=== PATIENT | male | born 1955 | race Two or more races ===

== ENCOUNTER 2017-08-30 01:58 | Inpatient (IN) | payer MEDICAID ==
[~2017-08-30] VITALS: Ht 177.8 cm; Wt 84.4 kg
[2017-08-30 02:59] LABS: BASOPHILS % (AUTO) 0.4 % (0.0-2.0); EOSINOPHILS % (AUTO) 0.4 % (0.0-7.0); HEMATOCRIT 41.5 % (36.7-47.1); HEMOGLOBIN 14.6 g/dL (12.5-16.3); LYMPHOCYTES # (AUTO) 1.9 K/uL (20.0-40.0); LYMPHOCYTES % (AUTO) 19.9 % (20.5-51.5); MEAN CORPUSCULAR HEMOGLOBIN 30.5 uug (23.8-33.4); MEAN CORPUSCULAR HGB CONC 35 g/dL (32.5-36.3); MEAN CORPUSCULAR VOLUME 86.9 fL (73.0-96.2); MONOCYTES # (AUTO) 0.9 K/uL (2.0-10.0); MONOCYTES % (AUTO) 9.8 % (0.0-11.0); NEUTROPHILS # (AUTO) 6.7 K/uL (1.8-8.9); NEUTROPHILS % (AUTO) 69.5 % (38.5-71.5); PLATELET COUNT (AUTO) 171 K/uL (152-348); RED BLOOD CELL COUNT(AUTO) 4.78 MIL/uL (4.06-5.63); WHITE BLOOD COUNT (AUTO) 9.6 K/uL (3.6-10.2)
[2017-08-30 03:15] LABS: BILIRUBIN,DIRECT 0.1 mg/dL (0.0-0.2); BILIRUBIN,TOTAL 0.6 mg/dL (0.2-1.0); CREATININE 1.4 mg/dL (0.6-1.3); POTASSIUM 3.7 mmol/L (3.5-5.1); TOTAL PROTEIN, SERUM 7.4 g/dL (6.4-8.2)
[2017-08-30] MEDS ORDERED: IV NORMAL SALINE 1000 ML BAG IV ONE (03:45)
--- NOTE | 2017-08-30 04:11 | NUR ---
Family at bedside, patient resting. no acute distress noted.
[2017-08-30] MEDS ORDERED: METF500T4 PO (04:13)
[2017-08-30] MEDS ORDERED: GLIP5TAB13 PO (04:13)
[2017-08-30] MEDS ORDERED: AMLO5TAB2 PO (04:13)
[2017-08-30] MEDS ORDERED: LISI-607 PO (04:13)
--- NOTE | 2017-08-30 06:04 | NUR ---
Call placed to [facility] for panel call. Call back pending.
--- NOTE | 2017-08-30 06:05 | NUR ---
Patient in bed, no acute distress noted. All patient needs attended and met. Call light is within reach.
--- NOTE | 2017-08-30 06:42 | NUR ---
ER spoke with Dr Mcleod. Patient cleared for inpatient Telemetry admission.
--- NOTE | 2017-08-30 06:52 | NUR ---
Attempted to give report on patient. Per inpatient unit, there is no nurse assigned to this patients room at this time. Unable to give report at this time.
[2017-08-30] MEDS ORDERED: Z GUARD REMEDY PASTE 57 GM TUBE TOP PRN (07:00)
[2017-08-30] MEDS ORDERED: DEXTROSE 50% 50 ML DISP.SYRIN IV PRN (07:00)
[2017-08-30] MEDS ORDERED: MAGNESIUM HYDROXIDE 30 ML LIQUID UDC PO PRN (07:00)
[2017-08-30] MEDS ORDERED: ACETAMINOPHEN 325 MG TABLET PO PRN (07:00)
[2017-08-30] MEDS: BLOOD SUGAR DIAGNOSTIC 1 EACH STRIP VI SCH ×4 (07:44→21:21)
[2017-08-30] MEDS ORDERED: INSULIN REGULAR, HUMAN 300 UNIT/3 ML VIAL ONE (08:03)
--- NOTE | 2017-08-30 08:04 | NUR ---
report was given to fingernail technician. pt was transfered to room #224.
[2017-08-30 08:30] VITALS: BP 138/79
[2017-08-30 11:11] VITALS: BP 131/79
--- NOTE | 2017-08-30 11:30 | NUR ---
PT. EATING FOOD FROM E.R. PRIOR TO ACCU-CHEK
[2017-08-30] MEDS: GUAIFENESIN/DEXTROMETHORPHAN 5 ML UDC PO PRN (13:33)
[2017-08-30] MEDS: HYDROCODONE/APAP 5-325MG TABLET PO PRN (15:14)
[2017-08-30] MEDS: INSULIN REGULAR, HUMAN 300 UNIT/3 ML VIAL SQ PRN (17:38)
[2017-08-30 19:00] VITALS: BP 127/59
--- NOTE | 2017-08-30 19:30 | NUR ---
PT IN ROOM ALERT AWAKE IN NO ACUTE DISTRESS. DENIES ANY DIZZINESS OR INCREASED WEAKNESS SINCE ADMISSION. PT ABLE TO MAKE NEEDS KNOWN AND FOLLOW SIMPLE COMMANDS. PT MADE AWARE OF FALL RISK AND TO INFORM STAFF IF ASSISTANCE IS NEEDED. CALL LIGHT PLACED WITHIN REACH. CONTINUE TO MONITOR.
[2017-08-30] MEDS: INSULIN REGULAR, HUMAN 300 UNITS/3 ML VIAL SQ PRN (21:25)
[2017-08-30] MEDS: IV NS 1000 ML 1,000 ML IV PRN (23:04)
[2017-08-31] VITALS: BP 143/84
[2017-08-31 05:13] VITALS: BP 153/92
--- NOTE | 2017-08-31 06:00 | NUR ---
PT IN ROOM ALERT AWAKE IN NO ACUTE DISTRESS. DENIES INCREASED DIZZINESS OR DISCOMFORT. NO EPISODES OF INCREASED SYNCOPE OVERNIGHT. ABLE TO FOLLOW SIMPLE COMMANDS WITHOUT DIFFICULTY. CONTINUING IV HYDRATION AT 100ML/HR NS. CONTINUE TO MONITOR. NO FEVER NOTED. CALL LIGHT PLACED WITHIN REACH.
[2017-08-31] MEDS: BLOOD SUGAR DIAGNOSTIC 1 EACH STRIP VI SCH ×4 (06:54→20:53)
[2017-08-31] MEDS: INSULIN REGULAR, HUMAN 300 UNITS/3 ML VIAL SQ PRN ×2 (06:56→21:00)
[2017-08-31 08:41] LABS: BASOPHILS % (AUTO) 0.4 % (0.0-2.0); EOSINOPHILS # (AUTO) 0.1 K/uL (0.0-0.7); HEMATOCRIT 38.8 % (36.7-47.1); HEMOGLOBIN 13.6 g/dL (12.5-16.3); LYMPHOCYTES # (AUTO) 1.5 K/uL (20.0-40.0); LYMPHOCYTES % (AUTO) 18.8 % (20.5-51.5); MEAN CORPUSCULAR HEMOGLOBIN 30.4 uug (23.8-33.4); MEAN CORPUSCULAR HGB CONC 35 g/dL (32.5-36.3); MEAN CORPUSCULAR VOLUME 86.4 fL (73.0-96.2); MONOCYTES # (AUTO) 0.7 K/uL (2.0-10.0); MONOCYTES % (AUTO) 8.6 % (0.0-11.0); NEUTROPHILS # (AUTO) 5.7 K/uL (1.8-8.9); NEUTROPHILS % (AUTO) 71.2 % (38.5-71.5); PLATELET COUNT (AUTO) 170 K/uL (152-348); RED BLOOD CELL COUNT(AUTO) 4.49 MIL/uL (4.06-5.63)
[2017-08-31] MEDS: GUAIFENESIN/DEXTROMETHORPHAN 5 ML UDC PO PRN ×2 (08:45→17:41)
[2017-08-31] MEDS: HYDROCODONE/APAP 5-325MG TABLET PO PRN ×2 (08:46→17:42)
[2017-08-31 08:55] LABS: CREATININE 1.1 mg/dL (0.6-1.3); MAGNESIUM 1.7 mg/dL (1.8-2.4); PHOSPHOROUS 2.2 mg/dL (2.5-4.9); POTASSIUM 3.9 mmol/L (3.5-5.1)
[2017-08-31 11:11] VITALS: BP 143/89
[2017-08-31] MEDS: INSULIN REGULAR, HUMAN 300 UNIT/3 ML VIAL SQ PRN (12:12)
[2017-08-31] MEDS: IV NS 1000 ML 1,000 ML IV PRN (12:14)
[2017-08-31] MEDS: ONDANSETRON 4 MG/2 ML VIAL IV PRN ×2 (14:44→17:19)
[2017-08-31 15:23] VITALS: BP 159/86
[2017-08-31] MEDS ORDERED: NEUTRA PHOS PACKET PO ONE (16:15)
[2017-08-31] MEDS ORDERED: LORAZEPAM 2 MG/1 ML VIAL IV PRN (19:00)
--- NOTE | 2017-08-31 19:30 | NUR ---
PT IN ROOM ASLEEP IN NO ACUTE DISTRESS. NEW IV SITE NOTED ON LEFT WRIST. NO S/S OF INCREASED AGITATION. CONTINUE TO MONITOR. CALL LIGHT PLACED WITHIN REACH.
[2017-08-31 20:00] VITALS: BP 140/84
--- NOTE | 2017-09-01 02:00 | NUR ---
PT IN ROOM WITH NO INCREASED AGITATION NOTED AT THIS TIME. NO S/S OF HYPER/HYGLYCEMIA PRESENT. CONTINUE TO MONITOR. CALL LIGHT PLACED WITHIN REACH.
--- NOTE | 2017-09-01 05:00 | NUR ---
Pt alert awake in room with no increased episodes of confusion, syncope, or abnormal behavior. BP noted 145/77. Able to follow simple commands. Continue to monitor. Call light placed within reach. Dajohn from last night Sarai will also come sometime later this morning.
[2017-09-01] MEDS: IV NS 1000 ML 1,000 ML IV PRN (05:15)
[2017-09-01 06:00] VITALS: BP 145/77
[2017-09-01] MEDS: BLOOD SUGAR DIAGNOSTIC 1 EACH STRIP VI SCH ×2 (06:33→12:02)
--- NOTE | 2017-09-01 07:10 | NUR ---
RECEIVED PATIENT ASLEEP, LYING ON A LEFT SIDE POSITION WITH NO SOB, COUGH DISTRESS OR ANY DISPLAY OF DISCOMFORTS AT THIS TIME. CALL LIGHT NOTED TO BE IN REACH. PATIENT EASILY AROUSED. ALL NEEDS WERE ATTENDED AND ANTICIPATED. NOTED IV LINE ON LEFT WRIST PATENT, INTACT WITH NO SIGNS AND SYMPTOMS OF INFILTRATED OR ANY INFECTIONS. ENCOURAGED PATIENT TO USE CALL LIGHT WHENEVER ASSISTANCE IS NEEDED. WILL CONTINUE TO MONITOR.
[2017-09-01 07:24] LABS: BASOPHILS % (AUTO) 0.4 % (0.0-2.0); EOSINOPHILS # (AUTO) 0.2 K/uL (0.0-0.7); EOSINOPHILS % (AUTO) 2.1 % (0.0-7.0); HEMATOCRIT 38.5 % (36.7-47.1); HEMOGLOBIN 13.7 g/dL (12.5-16.3); LYMPHOCYTES # (AUTO) 2.1 K/uL (20.0-40.0); MEAN CORPUSCULAR HEMOGLOBIN 30.7 uug (23.8-33.4); MEAN CORPUSCULAR HGB CONC 36 g/dL (32.5-36.3); MEAN CORPUSCULAR VOLUME 86.2 fL (73.0-96.2); MONOCYTES # (AUTO) 0.6 K/uL (2.0-10.0); MONOCYTES % (AUTO) 7.7 % (0.0-11.0); NEUTROPHILS # (AUTO) 4.6 K/uL (1.8-8.9); NEUTROPHILS % (AUTO) 61.8 % (38.5-71.5); PLATELET COUNT (AUTO) 196 K/uL (152-348); RED BLOOD CELL COUNT(AUTO) 4.46 MIL/uL (4.06-5.63); WHITE BLOOD COUNT (AUTO) 7.5 K/uL (3.6-10.2)
[2017-09-01 07:47] LABS: BILIRUBIN,TOTAL 0.5 mg/dL (0.2-1.0); CREATININE 1.1 mg/dL (0.6-1.3); MAGNESIUM 1.9 mg/dL (1.8-2.4); PHOSPHOROUS 3.4 mg/dL (2.5-4.9); POTASSIUM 4.1 mmol/L (3.5-5.1); TOTAL PROTEIN, SERUM 7.1 g/dL (6.4-8.2)
[2017-09-01 11:06] VITALS: BP 178/94
[2017-09-01] MEDS ORDERED: METOPROLOL TARTRATE 25 MG TABLET PO SCH (11:45)
[2017-09-01] MEDS: INSULIN REGULAR, HUMAN 300 UNIT/3 ML VIAL SQ PRN (12:09)
--- NOTE | 2017-09-01 13:50 | NUR ---
SEEN AND EXAMINED BY DR. DEVANTE WHYTE WITH NEW ORDER TO DISCHARGE THE PATIENT. ORDERS NOTED AND CARRIED OUT. PATIENT SPOKE TO MD AND STUDIO GRIP.
[2017-09-01] MEDS ORDERED: METF10002 PO (13:55)
[2017-09-01 15:04] VITALS: BP 141/106
--- NOTE | 2017-09-01 16:20 | NUR ---
PATIENT NOTED AWAKE, ALERT AND ORIENTED WITH HIS DAUGHTER AT BEDSIDE PEACE. PATIENT IS DISCHARGED HOME ORDERED. PATIENT IS IN STABLE CONDITION NO SOB, DISTRESS OR COUGH NOTED AT THIS TIME. HEALTH TEACHINGS WERE PROVIDED TO PATIENT AND PATIENT'S DAUGHTER PEACE. THEY WERE ABLE TO VERBALIZED UNDERSTANDING. PER PEACE SHE WILL TAKE THE PATIENT TO HIS PCP IN 2 WEEKS AFTER THE DISCHARGE ORDERED BY DR. DEVANTE WHYTE. SKIN IS INTACT. NO DISCOLORATIONS OR ANY SKIN ISSUES. WILL ACCOMPANY THE PATIENT AND DAUGHTER TO PRIVATE VEHICLE.
== END 2017-09-01 16:15 | disposition home or self-care (01) | DRG 113 ==
LOC: ER 02:00 → TELE 08:02 → MED 08-31 12:18
PROVIDERS: ADMIT Internal Medicine
DX: J06.9 Acute upper respiratory infection, unspecified (principal); N17.0 Acute kidney failure with tubular necrosis; E11.65 Type 2 diabetes mellitus with hyperglycemia; I10 Essential (primary) hypertension; E86.0 Dehydration; Z79.84 Long term (current) use of oral hypoglycemic drugs; M50.30 Other cervical disc degeneration, unspecified cervical region; E83.39 Other disorders of phosphorus metabolism; E83.42 Hypomagnesemia; G31.84 Mild cognitive impairment of uncertain or unknown etiology; F23 Brief psychotic disorder; Z79.899 Other long term (current) drug therapy; J32.8 Other chronic sinusitis; M46.82 Other specified inflammatory spondylopathies, cervical region; I70.0 Atherosclerosis of aorta; R55 Syncope and collapse
CPT/HCPCS: 36415; 70030-TC; 70450; 71045; 72125; 83605; 83735; 84100; 85025; 85730; 87040; 87400; 93005; A4663; J1815; J2060; J2405; J7030